=== PATIENT | female | born 1930 | race Caucasian/White ===

== ENCOUNTER → 2018-03-20 | Outpatient (CLI) | payer MEDICARE ==
[~2018-03-20] MED LIST: ASCO500T PO; ASPI-39 PO; CALC-98 PO; GABA-585 PO; LEVO75TA5 PO; METO-239 PO; MULT-18 PO; POLY17PO29 PO; RANI300T PO; SIMV40TA3 PO; VITA1TAB3 PO; WARF1TAB69 PO; WARF2TAB96 PO; [UNRECOGNIZED DRUG - CODE] PO
[2018-03-20 14:15] LABS: PROTHROMBIN TIME PATIENT 20.3 SEC (11.7-14.0)
== END | disposition home or self-care (01) ==
LOC: LAB 13:35
PROVIDERS: ATTEND Nuclear Medicine Nuclear Cardiology
DX: I48.0 Paroxysmal atrial fibrillation (principal); Z79.01 Long term (current) use of anticoagulants
CPT/HCPCS: 36415; 85610